=== PATIENT | female | born 1975 | race Caucasian/White ===

== ENCOUNTER 2024-10-27 04:02 | Emergency (ER) | payer OTHER ==
[~2024-10-27] VITALS: Ht 167.6 cm; Wt 90.7 kg
[~2024-10-27 04:02] MED LIST: AMOXICILLIN500 M2 PO; AMOXICILLIN500 M3 PO; CLEOCIN HCL300 MG PO; CYCLOBENZAPRINE10 MG PO; D-1000 185 MG-11 TAB PO; FLEXERIL5 MG PO; HYDROCODONE BIT1 T20 PO; MOTRIN800 MG PO; NAPROSYN500 MG PO; PREDNISONE50 MG PO; SOMA250 MG PO; SOMA350 MG PO; VICODIN 5/500 505 MG PO; VICODIN ES 7.51 EACH PO
[2024-10-27 04:08] VITALS: BP 112/83
[2024-10-27 04:26] LABS: BASO % 0.2 % (0.0-1.0); HEMATOCRIT 43.4 % (37.0-47.0); MEAN CELL VOLUME 85.8 fl (81.0-99.0); MEAN CORPUSCULAR HGB 28.1 pg (27.0-31.0); MEAN CORPUSCULAR HGB CONC 32.7 g/dl (33.0-37.0); MEAN PLATELET VOLUME 9.1 fl (9.6-12.3); MONO # 1.4 10*3/uL (0.1-1.0); MONO % 6.8 % (3.0-9.0); NEUT # 16.6 10*3/uL (2.3-7.9); NEUT % 82.4 % (47.0-73.0); PLATELET COUNT AUTOMATED 289 10*3/uL (130-400); RED BLOOD COUNT 5.06 10*6/uL (4.10-5.10); RED CELL DISTRI WIDTH 12.4 % (0-14.5); WHITE BLOOD COUNT 20.1 10*3/uL (4.8-10.8)
[2024-10-27] MEDS ORDERED: SODIUM CHLORIDE 0.9% 1,000 ML IV ONE (04:35)
[2024-10-27] MEDS ORDERED: Ondansetron Hydrochloride 4 MG/2 ML VIAL IV ONE (04:35)
[2024-10-27 04:50] LABS: BUN 15 mg/dl (9-23); CHLORIDE 102 mmol/L (98-107); POTASSIUM 3.9 mmol/L (3.4-5.1)
[2024-10-27] MEDS ORDERED: Ketorolac Tromethamine 60 MG/2 ML VIAL IM ONE (06:05)
[2024-10-27] MEDS ORDERED: PENICILLIN V POTASSIUM 500 MG TAB PO ONE (06:05)
[2024-10-27] MEDS ORDERED: PENICILLIN VK500 MG PO (06:07)
== END 2024-10-27 06:20 | disposition home or self-care (01) ==
LOC: ED 04:02
PROVIDERS: Internal Medicine
DX: J02.0 Streptococcal pharyngitis (principal); D72.829 Elevated white blood cell count, unspecified; N18.31 Chronic kidney disease, stage 3a; Z79.899 Other long term (current) drug therapy; F17.200 Nicotine dependence, unspecified, uncomplicated; Z98.51 Tubal ligation status; Z98.890 Other specified postprocedural states

== ENCOUNTER 2025-01-20 21:07 | Emergency (ER) | payer OTHER ==
[~2025-01-20] VITALS: Wt 90.7 kg
[~2025-01-20 21:07] MED LIST changes: +PENICILLIN VK500 MG PO
[2025-01-20] MEDS ORDERED: Acetaminophen/Oxycodone 5 MG/325 MG TABLET PO ONE (23:20)
[2025-01-20 23:21] LABS: BASO # 0.0 10*3/uL (0.0-0.1); BASO % 0.2 % (0.0-1.0); EOS # 0.1 10*3/uL (0.0-0.4); EOS % 0.5 % (1.0-4.0); MEAN CELL VOLUME 88.1 fl (81.0-99.0); MEAN CORPUSCULAR HGB 28.5 pg (27.0-31.0); MEAN PLATELET VOLUME 8.7 fl (9.6-12.3); MONO # 0.7 10*3/uL (0.1-1.0); MONO % 6.1 % (3.0-9.0); NEUT # 8.0 10*3/uL (2.3-7.9); NEUT % 73.5 % (47.0-73.0); NUCLEATED RED BLOOD CELL 0.0 % (0.0-0.0); NUCLEATED RED BLOOD CELL 0.0 10*3/uL (0.0-0.0); PLATELET COUNT AUTOMATED 279 10*3/uL (130-400); RED CELL DISTRI WIDTH 12.5 % (0-14.5)
[2025-01-20 23:42] LABS: BUN 15 mg/dl (9-23)
[2025-01-21] MEDS ORDERED: IOHEXOL 350 MG/ML 100 ML VIAL IV ONE ×2 (01:10→01:32)
[2025-01-21] MEDS ORDERED: SODIUM CHLORIDE 0.9% 100 ML BAG IV ONE (01:10)
[2025-01-21] MEDS ORDERED: SODIUM CHLORIDE 0.9% 100 ML IV ONE (01:31)
[2025-01-21] MEDS ORDERED: HEPARIN SODIUM 250 ML IV SCH (04:10)
[2025-01-21] MEDS ORDERED: APIXABAN 5 MG TAB PO ONE (05:45)
[2025-01-21 07:32] VITALS: BP 111/44
== END 2025-01-21 09:20 | disposition short-term general hospital (02) ==
LOC: ED 21:07
PROVIDERS: Emergency Medicine
DX: I26.99 Other pulmonary embolism without acute cor pulmonale (principal); I51.7 Cardiomegaly; F17.200 Nicotine dependence, unspecified, uncomplicated; Z79.899 Other long term (current) drug therapy; Z98.51 Tubal ligation status; Z98.890 Other specified postprocedural states